=== PATIENT | female | born 1960 | race Caucasian/White ===

== ENCOUNTER 2016-09-21 15:10 | Day surgery (SDC) | payer OTHER ==
[~2016-09-21] VITALS: Ht 157.5 cm; Wt 58.9 kg
[~2016-09-21 15:10] MED LIST: ALLERGY RELIEF180 MG PO; FLONASE SENSIM9.9 ML BOTH NARES; LEVO-T88 MCG PO; ZOLOFT100 MG PO
[2016-09-21 15:59] VITALS: BP 113/66
[2016-09-21 16:17] LABS: HEMATOCRIT 37.1 % (36.0-46.0); MCH 30.7 PG (29.0-34.0); MCHC 33.4 G/DL (30.0-36.0); MCV 91.8 FL (83-99); MEAN PLAT.VOLUME 9.3 uM^3 (9.5-12.4); PLATELET COUNT 265 K/uL (156-360); RBC DIS.WIDTH-CV 12.5 % (11.8-14.6); RBC DIS.WIDTH-SD 42.1 % (39-53); RED BLOOD COUNT 4.04 M/uL (3.80-5.20); WHITE BLOOD COUNT 7.1 K/uL (4.1-10.2)
[2016-09-21 20:15] VITALS: BP 146/67
== END 2016-09-21 20:50 | disposition home or self-care (01) ==
LOC: SDC 15:10
PROVIDERS: Ophthalmology
DX: H33.002 Unspecified retinal detachment with retinal break, left eye (principal); H33.42 Traction detachment of retina, left eye; E03.9 Hypothyroidism, unspecified
CPT/HCPCS: 85027; 93005; J0690; J1100; J1120; J1885; J2250; J2795; J3010; J3300